=== PATIENT | male | born 1960 ===

== ENCOUNTER 2023-11-24 14:59 | Emergency (ER) | payer BC, SELFPAY ==
[2023-11-24 15:24] VITALS: BP 129/90; PULSE 100; RESP 18; TEMP 37.2; O2SAT 97
--- NOTE | 2023-11-24 15:46 | PC.NURSE ---
Patient's to the intake desk states that patient is also having swelling to the left lower leg. patient is sitting outside in the car and is inside because she did not want the patient sitting next to sick people.
--- NOTE | 2023-11-24 16:44 | PC.NURSE ---
Patient's to the intake desk stating they were able to get ahold of patient's surgeon and wants patient to go be seen at [facility] where patient had surgery.
== END 2023-11-24 16:44 | disposition left against medical advice (07) ==
DX: R50.9 Fever, unspecified (principal)
CPT/HCPCS: 99199